=== PATIENT | male | born 1975 | race Caucasian/White ===

== ENCOUNTER 2017-08-09 07:06 | Emergency (ER) | payer BC ==
--- NOTE | 2017-08-09 08:52 | RAD ---
3 VIEWS LEFT HAND: Date: 08/09/17 HISTORY: Left hand pain. Evaluate for foreign body. FINDINGS/IMPRESSION: AP, lateral, and oblique views of the left hand obtained. Three views of the left hand demonstrate no evidence of left hand fractures, subluxations, or bony lesions. No definite evidence of radiopaque f oreign body seen within the soft tissues. Where is the exact location for the supposed foreign body? Unfortunately, this area is not marked on the radiograph to definitively evaluate. It may be worthwhi le to consider having the patient return with exact location where the patient is palpating the possi ble foreign body with an external radiopaque marker. POS: [facility]
== END 2017-08-09 08:31 | disposition home or self-care (01) ==
LOC: BURERS 07:06
DX: M79.642 Pain in left hand (principal); F41.9 Anxiety disorder, unspecified; B20 Human immunodeficiency virus [HIV] disease